=== PATIENT | male | born 1955 | race African-American/Black ===

== ENCOUNTER 2019-03-18 02:19 | Emergency (ER) | payer OTHER ==
[~2019-03-18] VITALS: Ht 170.2 cm; Wt 74.8 kg
[2019-03-18 02:20] VITALS: BP 191/120
--- NOTE | 2019-03-18 03:00 | NUR ---
Patient does not wish to proceed with medical care recommended by Dr. LUCAS. Patient given information related to possible complications, up to and including , which could occur as a result of leaving the hospital at this time. Patient verbalizes understanding of risks involved due to leaving against medical advice. Patient has signed AMA form. PT LEFT IN CUSTODY WITH [employer]
== END 2019-03-18 03:01 ==
LOC: ER 02:25
DX: I16.0 Hypertensive urgency (principal); Z91.14 Patient's other noncompliance with medication regimen

== ENCOUNTER 2019-03-18 03:39 | Emergency (ER) | payer OTHER ==
[~2019-03-18] VITALS: Ht 170.2 cm; Wt 74.8 kg
--- NOTE | 2019-03-18 03:51 | NUR ---
MANI FROM [facility] FOR HTN. PT STATES HE HAS BEEN NONCOMPLIANT WITH LISINIPRIL, UNKNOWN LAST DOSE. PT DENIES CHEST PAIN, HEADACHE, SOB, NAUSEA/VOMITTING. PT RECENTLY LEFT AMA X1HR GREASE BUFFER. PT AAOX4. RESPIRATIONS EVEN AND UNLABORED. SKIN WARM AND INTACT. NO ACUTE DISTRESS NOTED AT THIS TIME. WILL CONTINUE TO MONITOR.
[2019-03-18] MEDS ORDERED: CLONIDINE HCL 0.1 MG TABLET PO ONE (04:00)
[2019-03-18] MEDS ORDERED: CLONIDINE HCL 0.1 MG TABLET ONE (04:01)
[2019-03-18 04:18] VITALS: BP 165/108
== END 2019-03-18 04:31 | disposition home or self-care (01) ==
LOC: ER 03:56
DX: I16.0 Hypertensive urgency (principal); Z91.14 Patient's other noncompliance with medication regimen

== ENCOUNTER 2020-06-27 21:08 | Emergency (ER) | payer MEDICARE, OTHER ==
[~2020-06-27] VITALS: Ht 170.2 cm; Wt 74.8 kg
[2020-06-27 21:10] VITALS: BP 121/61
--- NOTE | 2020-06-27 21:25 | NUR ---
PT BIBRA DUE TO RECTAL BLEED. PT ELOPED BEFORE BEING SEEN BY ER MD.
== END 2020-06-27 21:24 | disposition home or self-care (01) ==
LOC: ER 21:10
DX: K62.5 Hemorrhage of anus and rectum (principal); Z53.21 Procedure and treatment not carried out due to patient leaving prior to being seen by health care provider